=== PATIENT | male | born 1985 | race Caucasian/White ===

== ENCOUNTER 2021-09-04 10:47 | Emergency (ER) | payer OTHER, SELFPAY ==
[2021-09-04 10:59] VITALS: BP 129/88; PULSE 98; RESP 16; TEMP 36.6; O2SAT 100
--- NOTE | 2021-09-04 12:42 | ED.GENADULT ---
HPI - General Adult General Chief complaint: Upper Respiratory Infection Stated complaint: covid+, URI symptoms Time Seen by Provider: 09/04/21 12:18 Source: patient Mode of arrival: ambulatory Limitations: no limitations History of Present Illness HPI narrative: Patient is on 36-year-old male presented with chief complaint of runny nose, congestion, headache, cough that began yesterday while incarcerated. Patient reports that his Covid test was positive today so he was released from half-way and brought to the emergency room. Patient denies any chest pain, shortness of breath, nausea, vomiting or any other emergent symptoms. Patient states that he would like to go home now and feels greatly improved from his symptoms yesterday. Related Data Home Medications Medication Instructions Recorded Confirmed No Home Medications 09/04/21 09/04/21 Allergies Allergy/AdvReac Type Severity Reaction Status Date / Time PENCILLIN Allergy Unknown Unknown Uncoded 09/04/21 12:13 Review of Systems Review of Systems: CONSTITUTIONAL: Denies fever, chills, or sweats. EYES: Denies visual changes, redness, or discharge. ENT: Reports rhinorrhea, congestion, sore throat denies otalgia. CARDIOVASCULAR: Denies chest pain, palpitations, or edema. RESPIRATORY: Reports dry cough denies dyspnea. GASTROINTESTINAL: Denies abdominal pain, nausea, vomiting, or diarrhea. GENITOURINARY: Denies dysuria or hematuria. SKIN: Denies rash or itching. MUSCULOSKELETAL: Denies back pain, joint pain, or myalgia. NEUROLOGIC: Reports resolved headache, denies numbness, dizziness, or weakness. PSYCHIATRIC: Denies anxiety or depression. Exam Narrative: GENERAL: Well-appearing, well-nourished, and in no acute distress. HEAD: Normocephalic, atraumatic. EYES: PERRLA and EOMI. ENT: Nares clear, no rhinorrhea or epistaxis. Mucous membranes moist. Bilateral TMs pearly [place] nonbulging NECK: Supple. No adenopathy or masses. No carotid bruits or JVD CHEST: Clear to auscultation. No respiratory distress. No wheezes rales or rhonchi. No tachypnea. No cough noted during exam. HEART: Regular rate and rhythm. No murmur heard. Normal peripheral pulses. EXTREMITIES: Normal range of motion. No edema. SKIN: Warm, dry, no rash. NEURO: No focal deficits. Alert and oriented x3. PSYCH: Normal mood and affect. Course Vital Signs Vital signs: Vital Signs Temperature 97.9 F 09/04/21 10:59 Pulse Rate 98 09/04/21 10:59 Respiratory Rate 16 09/04/21 10:59 Blood Pressure 129/88 09/04/21 10:59 Pulse Oximetry 100 09/04/21 10:59 Temperature 97.9 F 09/04/21 10:59 Pulse Rate 98 09/04/21 10:59 Respiratory Rate 16 09/04/21 10:59 Blood Pressure 129/88 09/04/21 10:59 Pulse Oximetry 100 09/04/21 10:59 Medical Decision Making MDM Narrative Medical decision making narrative: Patient is not started. Patient active. Patient denies shortness of breath or chest pain. Patient states he is feeling improved from the symptoms yesterday. Patient states he would like to be discharged home. Patient instructed to quarantine for the health department guidelines and to return to emergency room if he has any emergent symptoms. Patient verbalized understanding and agreement with plan. He denies any other questions or concerns. Vital Signs Vital Signs: Vital Signs Temperature 97.9 F 09/04/21 10:59 Pulse Rate 98 09/04/21 10:59 Respiratory Rate 16 09/04/21 10:59 Blood Pressure 129/88 09/04/21 10:59 Pulse Oximetry 100 09/04/21 10:59 Temperature 97.9 F 09/04/21 10:59 Pulse Rate 98 09/04/21 10:59 Respiratory Rate 16 09/04/21 10:59 Blood Pressure 129/88 09/04/21 10:59 Pulse Oximetry 100 09/04/21 10:59 Discharge Plan Discharge Clinical Impression: COVID-19 Patient Disposition: Home, Self-Care Condition: Improved Instructions: Antibiotic Form, COVID-19: Slow the Coronavirus Spread (ED) Additional Instructions: Take over
[2021-09-04 12:58] VITALS: BP 137/90; PULSE 118; RESP 18; O2SAT 98
== END 2021-09-04 12:59 | disposition home or self-care (01) ==
PROVIDERS: Emergency Provider Emergency Medicine
DX: U07.1 COVID-19 (principal)
CPT/HCPCS: 99281

== ENCOUNTER 2021-10-03 12:06 | Emergency (ER) | payer OTHER, SELFPAY ==
--- NOTE | ~2021-10-03 | XR_ITS ---
EXAMINATION: XR knee RT min 4V DATE: 10/03/2021 12:33 INDICATION: Anterior right knee pain. TECHNIQUE: 5 views of right knee were obtained. COMPARISON: None. FINDINGS: Bone alignment is normal. No fracture. Joint spaces are well maintained. There is no knee j oint effusion. IMPRESSION: 1. Normal right knee. Reviewed, dictated and finalized at location B. TS DIRECTOR IMPRESSION: 1. Normal right knee.
[2021-10-03 12:10] VITALS: BP 105/66; PULSE 103; RESP 16; TEMP 37.5; O2SAT 99
--- NOTE | 2021-10-03 12:30 | ED.LOWEXIN ---
HPI - Extremity Injury (Lower) General Chief Complaint: Extremity Injury, Lower Stated Complaint: R leg pain Time Seen by Provider: 10/03/21 12:30 Source: patient, RN notes reviewed and old records reviewed Mode of arrival: ambulatory Limitations: no limitations History of Present Illness HPI Narrative: 36-year-old male presents to the express care with complaints of right knee pain. Related Data Home Medications Medication Instructions Recorded Confirmed No Home Medications 09/04/21 10/03/21 Allergies Allergy/AdvReac Type Severity Reaction Status Date / Time Penicillins Allergy Unknown Verified 10/03/21 12:20 Review of Systems Review of Systems: All systems reviewed & are unremarkable except as noted in HPI and below Course Course Emergency Course: Patient returns from x-ray. Walking with a limp. Went to examine patient, patient walked out saying he had to use the bathroom. Picked up his cell phone and walked out the front door Level of Care: Express Care Visit Vital Signs Vital signs: Vital Signs Temperature 99.5 F 10/03/21 12:10 Pulse Rate 103 H 10/03/21 12:10 Respiratory Rate 16 10/03/21 12:10 Blood Pressure 105/66 10/03/21 12:10 Pulse Oximetry 99 10/03/21 12:10 Temperature 99.5 F 10/03/21 12:10 Pulse Rate 103 H 10/03/21 12:10 Respiratory Rate 16 10/03/21 12:10 Blood Pressure 105/66 10/03/21 12:10 Pulse Oximetry 99 10/03/21 12:10 MDM - Extremity Injury (Lower) Imaging Data Radiologist's impression: EXAMINATION: XR knee RT min 4V DATE: 10/03/2021 12:33 INDICATION: Anterior right knee pain. TECHNIQUE: 5 views of right knee were obtained. COMPARISON: None. FINDINGS: Bone alignment is normal. No fracture. Joint spaces are well maintained. There is no knee joint effusion. IMPRESSION: 1. Normal right knee. Critical Care Time Critical Care Time Critical Care Time: No Discharge Plan Discharge Patient Disposition: Left Without Being Seen Prescriptions: No Action No Home Medications RF: 0 Follow-up/Referrals: PHYSICIAN,[employer]DER[employer] MACHINE FEEDER [Primary Care Provider] -
== END 2021-10-03 12:44 | disposition left against medical advice (07) ==
PROVIDERS: Emergency Provider Nurse Practitioner
DX: M25.561 Pain in right knee (principal)
CPT/HCPCS: 73564; 99199

== ENCOUNTER 2022-01-19 10:30 | Emergency (ER) | payer OTHER, SELFPAY ==
[2022-01-19 10:38] VITALS: BP 124/78; PULSE 83; RESP 14; TEMP 36.4; O2SAT 100
--- NOTE | 2022-01-19 11:22 | ED.SKABFB ---
HPI - Skin/Abscess/Foreign Bdy General Chief complaint: Skin/Abscess/Foreign Body Stated complaint: Skin Sore Time Seen by Provider: 01/19/22 11:16 Source: patient and RN notes reviewed Mode of arrival: ambulatory Limitations: no limitations History of Present Illness HPI narrative: Patient presents today complaining of swelling and redness with a rash to his left forearm x3 days. Patient is an IV drug user and shoots up fentanyl. He has a couple of possibly infected track price and believes that his fentanyl may have been cut with other things. He does not share needles, but states he may use them for longer than his safe. He has also missed his vein a couple of times causing some wounds. Denies fever, red streaking up the arm. MD complaint: rash and discoloration Related Data Allergies Allergy/AdvReac Type Severity Reaction Status Date / Time Penicillins Allergy Unknown Verified 01/19/22 10:33 Review of Systems Review of Systems: CONSTITUTIONAL: Denies body aches, fever, chills, or sweats. EYES: Denies visual changes, redness, or discharge. ENT: Denies rhinorrhea, congestion, sore throat, or otalgia. CARDIOVASCULAR: Denies chest pain, palpitations, or edema. RESPIRATORY: Denies cough or dyspnea. GASTROINTESTINAL: Denies abdominal pain, nausea, vomiting, or diarrhea. GENITOURINARY: Denies dysuria or hematuria. SKIN: + Rash, redness, swelling to the left forearm MUSCULOSKELETAL: Denies back pain, joint pain, or myalgia. NEUROLOGIC: Denies headache, numbness, tingling, or weakness. PSYCH: Denies depression or anxiety. [facility] Social History Social History (Updated 01/19/22 @ 11:24 by Faith Fernandez, [facility], ) Substance use: current Substance use type: opiates and IV drugs Comments At time of signature, I have reviewed and agree with nursing past medical, surgical, social and family history unless otherwise noted. Please see nursing chart for further information. There is no relevant family history pertinent to the presenting complaint Exam Narrative: GENERAL: Well-appearing, well-nourished, and in no acute distress. HEAD: Normocephalic, atraumatic. EYES: EOMI. No redness or drainage. Conjunctivae normal. ENT: Mucous membranes pink and moist. NECK: Normal AROM. CHEST: No respiratory distress. EXTREMITIES: Left forearm: Most of forearm is mildly swollen and erythematous. Distal forearm is covered in a fine papular rash. Track price noted. Nothing is fluctuant or draining. No red streaking noted. Distal sensation intact. Capillary refill normal. Radial pulse normal. SKIN: Warm, dry, no rash. Capillary refill normal. Normal skin turgor. NEURO: No focal deficits. Alert and oriented x3. Gait steady. PSYCH: Normal affect. No signs of depression or anxiety. Course Course Level of Care: Express Care Visit Vital Signs Vital signs: Vital Signs Temperature 97.6 F 01/19/22 10:38 Pulse Rate 83 01/19/22 10:38 Respiratory Rate 14 01/19/22 10:38 Blood Pressure 124/78 01/19/22 10:38 Pulse Oximetry 100 01/19/22 10:38 Temperature 97.6 F 01/19/22 10:38 Pulse Rate 83 01/19/22 10:38 Respiratory Rate 14 01/19/22 10:38 Blood Pressure 124/78 01/19/22 10:38 Pulse Oximetry 100 01/19/22 10:38 Reviewed. Pt has been instructed to follow up with his PCP regarding his elevated blood pressure today. MDM - Skin/Abscess/Foreign Bdy Differential Diagnosis Differential diagnosis: Likely abscess of skin or subcutaneous tissue, urticaria, cellulitis, eczema, impetigo and contact dermatitis Critical Care Time Critical Care Time Critical Care Time: No Discharge Plan Discharge Clinical Impression: Cellulitis of forearm, left Contact dermatitis Qualifiers: Contact dermatitis type: unspecified Contact dermatitis trigger: unspecified trigger Qualified Code(s): L25.9 - Unspecified contact dermatitis, unspecified cause Patient Disposition: Home, Self-Care Condition: Stable Ins
== END 2022-01-19 11:29 | disposition home or self-care (01) ==
PROVIDERS: Emergency Provider Nurse Practitioner
DX: L03.114 Cellulitis of left upper limb (principal); L25.9 Unspecified contact dermatitis, unspecified cause
CPT/HCPCS: 99213; G0463